=== PATIENT | female | born 1935 | race Caucasian/White ===

== ENCOUNTER → 2025-03-21 | Outpatient (CLI) | payer MEDICARE ==
--- NOTE | 2025-03-21 10:28 | XR ---
EXAMINATION TYPE: XR chest 2V DATE OF EXAM: 03/21/2025 9:50 AM COMPARISON: Chest radiographs from 03/21/2025. CLINICAL INDICATION: Female, 89 years old with history of R05.9 Cough; [facility] TECHNIQUE: XR chest 2V Frontal and lateral views of the chest. FINDINGS: Lungs/Pleura: There is no evidence of pleural effusion, focal consolidation, or pneumothorax. Pulmonary vascularity: Unremarkable. Heart/mediastinum: Cardiomediastinal silhouette is unremarkable. Atherosclerotic calcifications are seen in the aorta. Musculoskeletal: No acute osseous pathology. IMPRESSION: No acute cardiopulmonary disease/process. [facility], , 03/21/2025 10:25 AM
--- NOTE | 2025-03-21 10:29 | XR ---
EXAMINATION TYPE: XR shoulder complete RT DATE OF EXAM: 03/21/2025 9:50 AM COMPARISON: None CLINICAL INDICATION: Female, 89 years old with history of M25.511 Shoulder pain right; [facility], pain TECHNIQUE: XR shoulder complete RT; examined in AP, internally rotated and scapular Y projections. FINDINGS: * No evidence of acute osseous pathology, joint dislocation, or soft tissue swelling. The remaining portions of the visualized chest are unremarkable. Degeneration changes of the acromion with acetab ularization of the undersurface and osteophyte formation and degeneration of the distal clavicle with osteophyte formation. There is osteophyte formation of the glenoid and humeral head. There is joint space narrowing of glenohumeral joint narrowing of the acromiohumeral interval. IMPRESSION: 1. No acute osseous pathology. 2. 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 3. 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 [facility], , 03/21/2025 10:27 AM
== END | disposition home or self-care (01) ==
LOC: RADXRMAIN 09:26
PROVIDERS: ATTEND Internal Medicine
DX: M19.011 Primary osteoarthritis, right shoulder (principal); R05.9 Cough, unspecified
CPT/HCPCS: 71046